=== PATIENT | male | born 1960 | race Caucasian/White ===

== ENCOUNTER 2017-08-06 03:41 | Inpatient (IN) | payer MEDICARE ==
[~2017-08-06] VITALS: Ht 180.3 cm; Wt 92.7 kg
[2017-08-06] MEDS ORDERED: GABA300S PO (03:59)
[2017-08-06 05:16] LABS: ALBUMIN 2.4 g/dL (3.4-5.0); ANION GAP 6 mmol/L (5-15); CALCIUM 8.4 mg/dL (8.5-10.1); CHLORIDE 106 mmol/L (98-107)
[2017-08-06 05:19] LABS: CREATININE 0.57 mg/dL (0.7-1.3)
[2017-08-06 05:23] LABS: MEAN CORPUSCULAR HEMOGLOBIN 32.5 pg (27.5-34.5); MEAN CORPUSCULAR HGB CONC 34.1 g/dL (33.2-36.2); MEAN CORPUSCULAR VOLUME 95.4 fL (81-97); MEAN PLATELET VOLUME 9.2 fL (7.4-10.4); PLATELET COUNT 230 x10^3/uL (130-400); RED BLOOD COUNT 3.97 x10^6/uL (4.38-5.82); RED CELL DISTRIBUTION WIDTH 12.7 % (9.4-14.8)
[2017-08-06] MEDS ORDERED: SODIUM CHLORIDE 0.9% 1,000 ML IV ONE (05:48)
[2017-08-06 05:54] LABS: BASOPHILS # (AUTO) 0.07 x10^3/uL (0-0.1); BASOPHILS % (AUTO) 0 % (0-1); EOSINOPHILS # (AUTO) 0.17 x10^3/uL (0-0.4); EOSINOPHILS % (AUTO) 1 % (1-7); LYMPHOCYTES # (AUTO) 1.49 x10^3/uL (1-3.4); LYMPHOCYTES % (AUTO) 8 % (22-44); MD SCAN; MONOCYTES # (AUTO) 1.61 x10^3/uL (0.2-0.8); MONOCYTES % (AUTO) 9 % (2-9); NEUTROPHILS # (AUTO) 15.47 x10^3/uL (1.8-6.8); NEUTROPHILS % (AUTO) 82 % (42-75)
[2017-08-06] MEDS ORDERED: ONDANSETRON 2MG/ML, 2ML IVPush PRN ×2 (06:00→07:30)
[2017-08-06] MEDS ORDERED: MORPHINE SULFATE 4 MG/ML, 1ML ONE (06:13)
[2017-08-06] MEDS ORDERED: ONDANSETRON 2MG/ML, 2ML ONE (06:13)
[2017-08-06] MEDS: MORPHINE SULFATE 4 MG/ML, 1ML IVPush PRN ×2 (06:18→11:10)
[2017-08-06] MEDS ORDERED: BISACODYL 10 MG SUPP PR PRN (07:30)
[2017-08-06] MEDS ORDERED: PROMETHAZINE 25 MG/ML, 1ML IM PRN (07:30)
[2017-08-06] MEDS ORDERED: ACETAMINOPHEN 325 MG TABLET PO PRN (07:30)
[2017-08-06] MEDS ORDERED: VANCOMYCIN PMX 1GM/200ML 200 ML IV ONE (07:30)
[2017-08-06] MEDS ORDERED: hydrALAzine 20 MG/ML, 1ML IVPush PRN (07:30)
[2017-08-06] MEDS ORDERED: DOCUSATE 100 MG CAPSULE PO PRN (07:30)
[2017-08-06] MEDS ORDERED: POLYETHYLENE GLYCOL 17 GM PACKET PO PRN (07:30)
[2017-08-06] MEDS ORDERED: VANCOMYCIN PER PHARMACY MC PRN (07:30)
[2017-08-06] MEDS ORDERED: PIPERACILLIN/TAZO/PMX 3.375GM 50 ML IV ONE (07:30)
[2017-08-06] MEDS ORDERED: LABETALOL 5MG/ML, 20ML IVPush PRN (07:30)
[2017-08-06] MEDS ORDERED: ONDANSETRON ODT 4 MG PO PRN (07:30)
[2017-08-06 07:45] VITALS: BP 106/67
[2017-08-06] MEDS ORDERED: PHARMACOKINETIC CONSULTATION MC ONE (08:00)
[2017-08-06] MEDS ORDERED: PHARMACOKINETIC MONITORING MC PRN (08:00)
[2017-08-06 08:07] LABS: FREE T4 (FREE THYROXINE) 1.23 ng/dL (0.76-1.46); TROPONIN I < 0.015 ng/mL (0.000-0.045)
[2017-08-06] MEDS: SODIUM CHLORIDE 0.9% 1,000 ML IV SCH ×2 (08:11→15:17)
[2017-08-06] MEDS: VANCOMYCIN 1,800 MG in SODIUM CHLORIDE 0.9% 250 ML IV SCH ×2 (08:12→19:38)
[2017-08-06 08:14] LABS: HEMOGLOBIN A1C 5.7 % (4.2-6.3)
[2017-08-06] MEDS: GABAPENTIN 400 MG CAPSULE PO SCH ×4 (10:09→19:38)
[2017-08-06] MEDS: NICOTINE 14MG/24 HR PATCH.TD24 TD SCH (10:09)
[2017-08-06] MEDS: HEPARIN 5,000 UNITS/ML, 1ML SQ SCH ×2 (10:09→18:00)
[2017-08-06] MEDS: morphine SULFATE 10 MG/ML, 1ML IVPush PRN ×2 (11:11→14:13)
[2017-08-06 13:48] VITALS: BP 133/83
[2017-08-06 13:52] LABS: TROPONIN I < 0.015 ng/mL (0.000-0.045)
[2017-08-06 13:54] VITALS: BP 152/62
[2017-08-06 20:13] VITALS: BP 112/73
[2017-08-07] MEDS: SODIUM CHLORIDE 0.9% 1,000 ML IV SCH ×3 (00:42→16:56)
[2017-08-07] MEDS: morphine SULFATE 10 MG/ML, 1ML IVPush PRN (00:54)
[2017-08-07 01:24] VITALS: BP 137/78
[2017-08-07 01:34] VITALS: BP 137/78
[2017-08-07] MEDS: HEPARIN 5,000 UNITS/ML, 1ML SQ SCH ×3 (02:00→17:24)
[2017-08-07] MEDS: GABAPENTIN 400 MG CAPSULE PO SCH ×4 (05:00→20:14)
[2017-08-07 05:53] LABS: CHLORIDE 106 mmol/L (98-107)
[2017-08-07 05:55] LABS: BASOPHILS # (AUTO) 0.03 x10^3/uL (0-0.1); BASOPHILS % (AUTO) 0 % (0-1); EOSINOPHILS # (AUTO) 0.22 x10^3/uL (0-0.4); EOSINOPHILS % (AUTO) 2 % (1-7); LYMPHOCYTES # (AUTO) 1.85 x10^3/uL (1-3.4); LYMPHOCYTES % (AUTO) 14 % (22-44); MD NO; MEAN CORPUSCULAR HEMOGLOBIN 32.6 pg (27.5-34.5); MEAN CORPUSCULAR HGB CONC 33.9 g/dL (33.2-36.2); MEAN CORPUSCULAR VOLUME 95.9 fL (81-97); MEAN PLATELET VOLUME 9.1 fL (7.4-10.4); MONOCYTES # (AUTO) 1.29 x10^3/uL (0.2-0.8); MONOCYTES % (AUTO) 10 % (2-9); NEUTROPHILS # (AUTO) 10.23 x10^3/uL (1.8-6.8); NEUTROPHILS % (AUTO) 75 % (42-75); PLATELET COUNT 258 x10^3/uL (130-400); RED BLOOD COUNT 3.73 x10^6/uL (4.38-5.82); RED CELL DISTRIBUTION WIDTH 12.9 % (9.4-14.8)
[2017-08-07 06:08] LABS: ALANINE AMINOTRANSFERASE 23 U/L (12-78); ALBUMIN 1.9 g/dL (3.4-5.0); ALKALINE PHOSPHATASE 91 U/L (45-117); ANION GAP 8 mmol/L (5-15); BILIRUBIN,TOTAL 0.4 mg/dL (0.2-1.0); CHOL/HDL RATIO 3.4; CHOLESTEROL, TOTAL 84 mg/dL (140-239); CREATININE 0.62 mg/dL (0.7-1.3); HDL CHOL % 30 % (26-37); HDL CHOLESTEROL (DIRECT) 25 mg/dL (40-60); LDL CHOLESTEROL,CALCULATED 47 mg/dL (54-169); LDL/HDL RATIO 1.9 (0.5-3.0); TOTAL PROTEIN 5.8 g/dL (6.4-8.2); TRIGLYCERIDES 59 mg/dL (50-200); VLDL CHOLESTEROL 12 mg/dL (0-25)
[2017-08-07 06:24] LABS: CULTURE INDICATED? YES; MICROSCOPIC INDICATED
[2017-08-07] MEDS: NICOTINE 14MG/24 HR PATCH.TD24 TD SCH (07:30)
[2017-08-07] MEDS ORDERED: POTASSIUM CHLORIDE 20 MEQ TAB.ER.PRT PO ONE (07:30)
[2017-08-07 07:44] VITALS: BP 121/65
[2017-08-07] MEDS: VANCOMYCIN 1,800 MG in SODIUM CHLORIDE 0.9% 250 ML IV SCH ×2 (07:56→20:14)
[2017-08-07] MEDS: ACETAMINOPHEN 325 MG TABLET PO SCH ×3 (07:57→20:14)
[2017-08-07] MEDS ORDERED: MORPHINE SULFATE 4 MG/ML, 1ML ONE (08:16)
[2017-08-07] MEDS: MORPHINE SULFATE 4 MG/ML, 1ML IVPush PRN ×2 (08:26→20:35)
[2017-08-07] MEDS ORDERED: morphine SULFATE 10 MG/ML, 1ML IVPush PRN (10:30)
[2017-08-07] MEDS: CYCLOBENZAPRINE 10 MG TABLET PO PRN ×2 (11:13→23:31)
[2017-08-07 15:39] VITALS: BP 117/76
[2017-08-07] MEDS: AMPICILLIN/SULBACTAM 3 GM in SODIUM CHLORIDE 0.9% 100 ML IV SCH ×2 (16:52→23:19)
[2017-08-07] MEDS: CARVEDILOL 3.125 MG TABLET PO SCH (17:24)
[2017-08-07 21:53] VITALS: BP 147/87
[2017-08-08] MEDS: SODIUM CHLORIDE 0.9% 1,000 ML IV SCH ×2 (01:52→13:37)
[2017-08-08] MEDS: HEPARIN 5,000 UNITS/ML, 1ML SQ SCH ×3 (01:52→22:04)
[2017-08-08] MEDS: ACETAMINOPHEN 325 MG TABLET PO SCH ×4 (01:53→19:54)
[2017-08-08 02:09] VITALS: BP 115/61
[2017-08-08 05:30] LABS: BASOPHILS # (AUTO) 0.09 x10^3/uL (0-0.1); BASOPHILS % (AUTO) 1 % (0-1); CHLORIDE 111 mmol/L (98-107); EOSINOPHILS # (AUTO) 0.24 x10^3/uL (0-0.4); EOSINOPHILS % (AUTO) 2 % (1-7); LYMPHOCYTES # (AUTO) 2.13 x10^3/uL (1-3.4); LYMPHOCYTES % (AUTO) 20 % (22-44); MD NO; MEAN CORPUSCULAR HEMOGLOBIN 32.1 pg (27.5-34.5); MEAN CORPUSCULAR HGB CONC 33.7 g/dL (33.2-36.2); MEAN CORPUSCULAR VOLUME 95.3 fL (81-97); MEAN PLATELET VOLUME 8.8 fL (7.4-10.4); MONOCYTES # (AUTO) 1.16 x10^3/uL (0.2-0.8); MONOCYTES % (AUTO) 11 % (2-9); NEUTROPHILS # (AUTO) 7.21 x10^3/uL (1.8-6.8); NEUTROPHILS % (AUTO) 67 % (42-75); PLATELET COUNT 282 x10^3/uL (130-400); RED BLOOD COUNT 3.71 x10^6/uL (4.38-5.82); RED CELL DISTRIBUTION WIDTH 12.6 % (9.4-14.8)
[2017-08-08 05:32] LABS: ANION GAP 6 mmol/L (5-15); CALCIUM 8.1 mg/dL (8.5-10.1)
[2017-08-08] MEDS: GABAPENTIN 400 MG CAPSULE PO SCH ×4 (05:48→22:04)
[2017-08-08] MEDS: CARVEDILOL 3.125 MG TABLET PO SCH ×2 (05:48→18:25)
[2017-08-08] MEDS: AMPICILLIN/SULBACTAM 3 GM in SODIUM CHLORIDE 0.9% 100 ML IV SCH ×3 (06:43→23:32)
[2017-08-08 06:51] VITALS: BP 120/80
[2017-08-08] MEDS: VANCOMYCIN 1,800 MG in SODIUM CHLORIDE 0.9% 250 ML IV SCH ×2 (07:43→19:54)
[2017-08-08] MEDS: CYCLOBENZAPRINE 10 MG TABLET PO PRN ×2 (09:30→22:05)
[2017-08-08] MEDS: MORPHINE SULFATE 4 MG/ML, 1ML IVPush PRN ×3 (13:36→22:04)
[2017-08-08 15:45] VITALS: BP 160/80
[2017-08-08 18:12] VITALS: BP 155/79
[2017-08-09] MEDS: ACETAMINOPHEN 325 MG TABLET PO SCH ×4 (02:02→20:47)
[2017-08-09] MEDS: SODIUM CHLORIDE 0.9% 1,000 ML IV SCH ×2 (02:02→16:32)
[2017-08-09 03:16] VITALS: BP 136/81
[2017-08-09] MEDS: GABAPENTIN 400 MG CAPSULE PO SCH ×4 (05:47→20:47)
[2017-08-09] MEDS: CARVEDILOL 3.125 MG TABLET PO SCH (05:47)
[2017-08-09] MEDS: HEPARIN 5,000 UNITS/ML, 1ML SQ SCH ×2 (05:48→16:33)
[2017-08-09] MEDS: MORPHINE SULFATE 4 MG/ML, 1ML IVPush PRN ×3 (05:48→18:04)
[2017-08-09] MEDS ORDERED: BISACODYL 5 MG EC TABLET PO PRN (07:30)
[2017-08-09 07:34] VITALS: BP 129/73
[2017-08-09] MEDS: AMPICILLIN/SULBACTAM 3 GM in SODIUM CHLORIDE 0.9% 100 ML IV SCH ×2 (09:27→16:32)
[2017-08-09] MEDS: SENNA/DOCUSATE TABLET PO SCH (09:27)
[2017-08-09] MEDS: VANCOMYCIN 1,800 MG in SODIUM CHLORIDE 0.9% 250 ML IV SCH (09:57)
[2017-08-09] MEDS: CYCLOBENZAPRINE 10 MG TABLET PO PRN ×2 (12:35→20:47)
[2017-08-09 15:48] VITALS: BP 138/90
[2017-08-09] MEDS ORDERED: MAGNESIUM CITRATE 300ML ORAL SOL PO ONE (16:00)
[2017-08-09] MEDS: CARVEDILOL 6.25 MG TABLET PO SCH (17:57)
[2017-08-09 19:57] VITALS: BP 130/80
[2017-08-10] MEDS: MORPHINE SULFATE 4 MG/ML, 1ML IVPush PRN ×5 (00:03→21:29)
[2017-08-10] MEDS: AMPICILLIN/SULBACTAM 3 GM in SODIUM CHLORIDE 0.9% 100 ML IV SCH ×3 (00:36→17:02)
[2017-08-10] MEDS: HEPARIN 5,000 UNITS/ML, 1ML SQ SCH ×4 (00:37→21:18)
[2017-08-10] MEDS: ACETAMINOPHEN 325 MG TABLET PO SCH ×4 (03:07→21:17)
[2017-08-10] MEDS: SODIUM CHLORIDE 0.9% 1,000 ML IV SCH ×2 (03:07→16:49)
[2017-08-10 03:25] VITALS: BP 158/84
[2017-08-10] MEDS: VANCOMYCIN 1,900 MG in SODIUM CHLORIDE 0.9% 250 ML IV SCH ×2 (04:53→23:23)
[2017-08-10] MEDS: CARVEDILOL 6.25 MG TABLET PO SCH (05:54)
[2017-08-10] MEDS: GABAPENTIN 400 MG CAPSULE PO SCH ×4 (05:54→21:17)
[2017-08-10] MEDS: SENNA/DOCUSATE TABLET PO SCH (07:57)
[2017-08-10 08:20] VITALS: BP 124/79
[2017-08-10] MEDS ORDERED: METHYLNALTREXONE 12 MG/0.6 ML SQ ONE (09:30)
[2017-08-10 15:27] VITALS: BP 137/90
[2017-08-10] MEDS: CARVEDILOL 3.125 MG TABLET PO SCH (16:50)
[2017-08-10 19:27] VITALS: BP 140/85
[2017-08-10] MEDS: CYCLOBENZAPRINE 10 MG TABLET PO PRN (21:17)
[2017-08-11] MEDS: MORPHINE SULFATE 4 MG/ML, 1ML IVPush PRN ×5 (00:37→22:37)
[2017-08-11] MEDS: AMPICILLIN/SULBACTAM 3 GM in SODIUM CHLORIDE 0.9% 100 ML IV SCH ×3 (01:12→17:00)
[2017-08-11 03:17] VITALS: BP 113/73
[2017-08-11] MEDS: ACETAMINOPHEN 325 MG TABLET PO SCH ×4 (03:24→20:11)
[2017-08-11] MEDS: SODIUM CHLORIDE 0.9% 1,000 ML IV SCH ×2 (06:05→20:11)
[2017-08-11] MEDS: HEPARIN 5,000 UNITS/ML, 1ML SQ SCH ×3 (06:05→22:37)
[2017-08-11] MEDS: CARVEDILOL 3.125 MG TABLET PO SCH ×2 (06:06→18:17)
[2017-08-11] MEDS: GABAPENTIN 400 MG CAPSULE PO SCH ×4 (06:06→20:10)
[2017-08-11] MEDS: SENNA/DOCUSATE TABLET PO SCH (08:53)
[2017-08-11 09:00] VITALS: BP 135/82
[2017-08-11 14:00] VITALS: BP 135/81
[2017-08-11] MEDS: CYCLOBENZAPRINE 10 MG TABLET PO PRN ×2 (15:39→20:10)
[2017-08-11] MEDS: VANCOMYCIN 1,900 MG in SODIUM CHLORIDE 0.9% 250 ML IV SCH (18:17)
[2017-08-11 19:09] VITALS: BP 152/83
[2017-08-12] MEDS: AMPICILLIN/SULBACTAM 3 GM in SODIUM CHLORIDE 0.9% 100 ML IV SCH ×3 (00:36→18:43)
[2017-08-12] MEDS: ACETAMINOPHEN 325 MG TABLET PO SCH ×4 (03:30→19:26)
[2017-08-12 03:50] VITALS: BP 118/70
[2017-08-12] MEDS: GABAPENTIN 400 MG CAPSULE PO SCH ×4 (05:09→19:26)
[2017-08-12] MEDS: CARVEDILOL 3.125 MG TABLET PO SCH ×2 (05:10→18:43)
[2017-08-12] MEDS: CYCLOBENZAPRINE 10 MG TABLET PO PRN ×3 (05:13→21:42)
[2017-08-12] MEDS: HEPARIN 5,000 UNITS/ML, 1ML SQ SCH ×2 (09:01→17:00)
[2017-08-12] MEDS: SENNA/DOCUSATE TABLET PO SCH (09:01)
[2017-08-12] MEDS: SODIUM CHLORIDE 0.9% 1,000 ML IV SCH (09:06)
[2017-08-12 10:07] VITALS: BP 132/81
[2017-08-12] MEDS: VANCOMYCIN 1,900 MG in SODIUM CHLORIDE 0.9% 250 ML IV SCH (12:22)
[2017-08-12 13:15] VITALS: BP 135/81
[2017-08-12 13:55] VITALS: BP 143/76
[2017-08-12 20:45] VITALS: BP 150/81
[2017-08-12] MEDS: MORPHINE SULFATE 4 MG/ML, 1ML IVPush PRN (22:50)
[2017-08-13] MEDS: SODIUM CHLORIDE 0.9% 1,000 ML IV SCH ×2 (01:10→15:38)
[2017-08-13] MEDS: HEPARIN 5,000 UNITS/ML, 1ML SQ SCH ×3 (01:10→15:39)
[2017-08-13] MEDS: AMPICILLIN/SULBACTAM 3 GM in SODIUM CHLORIDE 0.9% 100 ML IV SCH ×2 (01:10→09:56)
[2017-08-13 02:57] VITALS: BP 138/86
[2017-08-13] MEDS: ACETAMINOPHEN 325 MG TABLET PO SCH ×4 (03:00→21:14)
[2017-08-13] MEDS: MORPHINE SULFATE 4 MG/ML, 1ML IVPush PRN ×4 (04:41→20:10)
[2017-08-13] MEDS: VANCOMYCIN 1,900 MG in SODIUM CHLORIDE 0.9% 250 ML IV SCH (04:41)
[2017-08-13] MEDS: CARVEDILOL 3.125 MG TABLET PO SCH ×2 (05:39→18:28)
[2017-08-13] MEDS: CYCLOBENZAPRINE 10 MG TABLET PO PRN ×2 (05:39→15:39)
[2017-08-13] MEDS: GABAPENTIN 400 MG CAPSULE PO SCH ×4 (05:39→21:14)
[2017-08-13 06:52] VITALS: BP 121/77
[2017-08-13] MEDS: SENNA/DOCUSATE TABLET PO SCH (09:56)
[2017-08-13 12:58] VITALS: BP 138/80
[2017-08-13] MEDS: AMOXICILLIN/CLAV 875-125MG TABLET PO SCH (21:14)
[2017-08-13] MEDS: DOXYCYCLINE 100MG TABLET PO SCH (21:14)
[2017-08-14] MEDS: MORPHINE SULFATE 4 MG/ML, 1ML IVPush PRN ×6 (00:19→22:38)
[2017-08-14] MEDS: HEPARIN 5,000 UNITS/ML, 1ML SQ SCH ×3 (00:19→17:00)
[2017-08-14] MEDS: ACETAMINOPHEN 325 MG TABLET PO SCH ×4 (03:02→20:29)
[2017-08-14] MEDS: SODIUM CHLORIDE 0.9% 1,000 ML IV SCH (03:03)
[2017-08-14 03:52] VITALS: BP 123/75
[2017-08-14] MEDS: GABAPENTIN 400 MG CAPSULE PO SCH ×4 (06:00→20:28)
[2017-08-14] MEDS: CARVEDILOL 3.125 MG TABLET PO SCH ×2 (06:05→18:00)
[2017-08-14 07:59] VITALS: BP 116/72
[2017-08-14] MEDS: DOXYCYCLINE 100MG TABLET PO SCH ×2 (08:32→20:29)
[2017-08-14] MEDS: SENNA/DOCUSATE TABLET PO SCH (08:32)
[2017-08-14] MEDS: AMOXICILLIN/CLAV 875-125MG TABLET PO SCH ×2 (08:32→20:29)
[2017-08-14 15:59] VITALS: BP 136/91
[2017-08-14] MEDS: CYCLOBENZAPRINE 10 MG TABLET PO PRN (19:17)
[2017-08-15] MEDS: MORPHINE SULFATE 4 MG/ML, 1ML IVPush PRN ×5 (01:58→21:40)
[2017-08-15] MEDS: HEPARIN 5,000 UNITS/ML, 1ML SQ SCH ×3 (01:58→18:23)
[2017-08-15] MEDS: SODIUM CHLORIDE 0.9% 1,000 ML IV SCH ×2 (01:58→16:36)
[2017-08-15 02:12] VITALS: BP 127/76
[2017-08-15] MEDS: ACETAMINOPHEN 325 MG TABLET PO SCH ×4 (02:20→21:39)
[2017-08-15] MEDS: CYCLOBENZAPRINE 10 MG TABLET PO PRN ×2 (06:02→16:36)
[2017-08-15] MEDS: GABAPENTIN 400 MG CAPSULE PO SCH ×4 (06:03→21:39)
[2017-08-15] MEDS: CARVEDILOL 3.125 MG TABLET PO SCH ×2 (06:03→18:24)
[2017-08-15 06:17] VITALS: BP 133/85
[2017-08-15] MEDS: SENNA/DOCUSATE TABLET PO SCH (09:00)
[2017-08-15] MEDS: AMOXICILLIN/CLAV 875-125MG TABLET PO SCH ×2 (09:13→21:39)
[2017-08-15] MEDS: DOXYCYCLINE 100MG TABLET PO SCH ×2 (09:13→21:39)
[2017-08-15 13:21] VITALS: BP 138/81
[2017-08-15 19:27] VITALS: BP 121/85
[2017-08-16] MEDS: HEPARIN 5,000 UNITS/ML, 1ML SQ SCH ×3 (01:06→17:00)
[2017-08-16] MEDS: MORPHINE SULFATE 4 MG/ML, 1ML IVPush PRN ×5 (01:06→15:51)
[2017-08-16 01:21] VITALS: BP 129/74
[2017-08-16] MEDS: ACETAMINOPHEN 325 MG TABLET PO SCH ×3 (04:30→15:51)
[2017-08-16] MEDS: SODIUM CHLORIDE 0.9% 1,000 ML IV SCH ×2 (04:30→17:00)
[2017-08-16] MEDS: GABAPENTIN 400 MG CAPSULE PO SCH ×3 (05:50→15:51)
[2017-08-16] MEDS: CARVEDILOL 3.125 MG TABLET PO SCH ×2 (05:50→18:00)
[2017-08-16] MEDS: CYCLOBENZAPRINE 10 MG TABLET PO PRN ×2 (05:50→09:57)
[2017-08-16 07:23] VITALS: BP 133/89
[2017-08-16] MEDS: DOXYCYCLINE 100MG TABLET PO SCH (07:36)
[2017-08-16] MEDS: AMOXICILLIN/CLAV 875-125MG TABLET PO SCH (07:36)
[2017-08-16] MEDS: SENNA/DOCUSATE TABLET PO SCH (07:36)
[2017-08-16] MEDS ORDERED: CYCL-259 PO (12:03)
[2017-08-16] MEDS ORDERED: AMOX1TAB12 PO (12:03)
[2017-08-16] MEDS ORDERED: CARV3.1212 PO (12:03)
[2017-08-16] MEDS ORDERED: HYDR-3241 PO (12:03)
[2017-08-16] MEDS ORDERED: DOXY100T PO (12:03)
[2017-08-16] MEDS ORDERED: ACET325T14 PO (12:03)
[2017-08-16] MEDS ORDERED: BISA5TAB5 PO (12:03)
[2017-08-16 13:23] VITALS: BP 134/89
== END 2017-08-16 18:19 | disposition home health service (06) | DRG 872 ==
LOC: ED 04:12 → EDIP 06:24 → 3NE 07:32
PROVIDERS: ADMIT Internal Medicine; ATTEND Internal Medicine
DX: A41.9 Sepsis, unspecified organism (principal); T21.3 Burn of third degree of trunk; T24.321A Burn of third degree of right knee, initial encounter; T24.309 Burn of third degree of unspecified site of unspecified lower limb, except ankle and foot; L03.115 Cellulitis of right lower limb; E44.0 Moderate protein-calorie malnutrition; N49.2 Inflammatory disorders of scrotum; E87.6 Hypokalemia; D64.9 Anemia, unspecified; F17.210 Nicotine dependence, cigarettes, uncomplicated; G47.00 Insomnia, unspecified; I10 Essential (primary) hypertension; M62.838 Other muscle spasm; X11.8XXA Contact with other hot tap-water, initial encounter; K59.00 Constipation, unspecified; M16.0 Bilateral primary osteoarthritis of hip; N50.89 Other specified disorders of the male genital organs; T24.009A Burn of unspecified degree of unspecified site of unspecified lower limb, except ankle and foot, initial encounter; W20.8XXA Other cause of strike by thrown, projected or falling object, initial encounter; Z96.641 Presence of right artificial hip joint; Z71.6 Tobacco abuse counseling; Y93.89 Activity, other specified; Y92.89 Other specified places as the place of occurrence of the external cause; Z68.28 Body mass index [BMI] 28.0-28.9, adult
CPT/HCPCS: 36415; 76870; 80048; 80053; 80061; 80202; 81001; 82040; 83036; 83735; 84439; 84443; 84484; 85025; 87040; 87086; 96374; 96375; J0295; J1644; J2405; J2543; J3370; J2270; J7030; J7050